=== PATIENT | male | born 1990 | race Caucasian/White ===

== ENCOUNTER 2023-06-09 00:56 | Emergency (ER) | payer BC, SELFPAY ==
[2023-06-09 00:58] VITALS: BP 131/97; PULSE 74; RESP 16; TEMP 36.6; O2SAT 98; BMI 25.0
--- NOTE | 2023-06-09 01:05 | EDS_ITS ---
HPI History of Present Illness Chief Complaint: Dental Informant: patient Narrative Narrative: Dental pain that started tonight when he was eating and the affected tooth seem to break apart, and then the pain worsened. He was going to try to wait into the morning to see a dentist but since the pain was so bad he came to the emergency department. He states he has had bleeding from this area when he brushes at times, and pain off-and-on in this tooth from time to time. PFSH PFSH Medical History no medical history no medical history Home Medications amoxicillin 500 mg tablet 500 mg PO TID #30 tabs 06/09/23 [Rx Last Taken Unknow n] tramadol 50 mg tablet 50 mg PO Q6H PRN pain 3 days #10 tabs 06/09/23 [Rx Last Taken Unknown] Allergy/AdvReac Type Severity Reaction Status Date / Time No Known Allergies Allergy Verified 06/09/23 00:56 Surgical History no surgical history Social History Smoking Status: Current every day smoker tobacco type: cigarettes ROS ROS ED Constitutional Constitutional ED: Denies chills or fever(s) Eyes Eyes: Denies change in vision or double vision ENT ENT ED: Reports dental pain; Denies sinus pain or throat swelling Cardiovascular Cardiovascular: Denies chest pain or palpitations Respiratory/Chest Respiratory/Chest: Denies cough or dyspnea Integumentary Denies abscess or rash Neurologic Neurologic: Denies headache(s), paresthesias or weakness EXAM Physical Exam Const Vital Signs: 06/09/23 00:58 Temperature 97.8 F Temperature Source Temporal Pulse Rate 74 Respiratory Rate 16 Blood Pressure 131/97 H Blood Pressure Mean 108 Pulse Ox 98 Oxygen Delivery Method Room Air Positive well nourished and well developed General Appearance ED: well developed and NAD HEENT HEENT Narrative: Significant dental decay left maxillary dentition where patient is having pain and mild tenderness. There is also some mild gingival swelling around this, some teeth are missing, I think these are teeth numbers 13 and 14. No trismus. No drainage or active bleeding or abscess. No purulent nasal discharge. No sinus tenderness. Face and Sinus: sinuses nontender Throat: posterior oropharynx normal Eyes PERRL and EOMs intact bilaterally Neck no lymphadenopathy and supple Resp normal respiratory effort Neuro oriented x3 and CN's II-XII intact bilaterally Sensorium / Orientation: alert Gait (Neuro): normal gait Psych mental status grossly normal and thought process normal Skin no rashes or lesions noted and no wounds MDM MDM MDM Narrative Medical decision making narrative: Given the exam I will place the patient on amoxicillin and give him analgesics as well as a prescription. Dental follow-up recommended given dental resource list. Discharge Plan Triage Chief Complaint: Dental ED Provider: Ricardo Peralta Dx/Rx/DC Orders Clinical Impression: Dental decay, Odontalgia Instructions: ED Dental Pain Prescriptions: New tramadol 50 mg tablet 50 mg PO Q6H PRN (Reason: pain) 3 Days Qty: 10 0RF amoxicillin 500 mg tablet 500 mg PO TID Qty: 30 0RF Primary Care Provider: Care Physician,No Primary Referrals: Dentist,Your [STAFF PHYSICIAN] - As soon as possible (See dental resource list if needed) Disposition Disposition: Home, Self Care Discharge Date/Time: 06/09/23 01:27
[2023-06-09] MEDS: AMOXICILLIN 500 MG CAPSULE PO (01:15)
[2023-06-09] MEDS: traMADol 50 MG Tablet PO (01:16)
[2023-06-09] MEDS: Ibuprofen 600 MG Tablet PO (01:16)
== END 2023-06-09 01:27 | disposition home or self-care (01) ==
LOC: ED 01:09
PROVIDERS: Emergency Provider Emergency Medicine; Visit Provider Emergency Medicine
DX: K08.89 Other specified disorders of teeth and supporting structures (principal); K02.9 Dental caries, unspecified; F17.210 Nicotine dependence, cigarettes, uncomplicated
CPT/HCPCS: 99282

== ENCOUNTER 2023-06-30 14:05 | Emergency (ER) | payer BC, SELFPAY ==
[2023-06-30 14:06] VITALS: BP 145/85; PULSE 108; RESP 18; TEMP 37; O2SAT 100; BMI 25.7
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
[2023-06-30 15:17] VITALS: RESP 14
== END 2023-06-30 15:19 | disposition home or self-care (01) ==
PROVIDERS: Emergency Provider Emergency Medicine; Visit Provider Emergency Medicine
DX: S06.0X9A Concussion with loss of consciousness of unspecified duration, initial encounter (principal); F17.210 Nicotine dependence, cigarettes, uncomplicated; S16.1XXA Strain of muscle, fascia and tendon at neck level, initial encounter; W20.8XXA Other cause of strike by thrown, projected or falling object, initial encounter; Y93.89 Activity, other specified
CPT/HCPCS: 70450; 72125; 99282